=== PATIENT | male | born 1970 | race Hispanic/Latino ===

== ENCOUNTER → 2023-11-26 | Day surgery (SDC) | payer BC ==
[~2023-11-26] MED LIST: CENTRUM ADULTS1 EACH PO; FENTANYL CITRATE/PF 100MCG/2 ML INJ ONE; FOLTX TABLET1 EAC1 PO; HYOSCYAMINE SULFATE 0.5 MG/ML INJ ONE; LACTATED RINGER'S 1,000 ML ONE; LIDOCAINE HCL 2% LOCAL INJ 5 ML SDV VIAL INJ ONE; METOCLOPRAMIDE HCL 10 MG/2ML VIAL ONE; MIDAZOLAM HCL 2 MG/2 ML VIAL ONE; OMEPRAZOLE40 MG PO; ONDANSETRON HCL INJ 2MG/ML 2ML 2 MG/ML VIAL ONE; PHENYLEPHRINE HCL 1% 10 MG/ML VIAL ONE; PROVENTIL HFA6.7 GM INH
[2023-11-26 08:27] VITALS: TEMP 97.6
[2023-11-26 08:55] VITALS: BP 103/80; PULSE 75; RESP 15; O2SAT 99
== END | disposition home or self-care (01) ==
LOC: OR 06:12
PROVIDERS: ATTEND Internal Medicine Gastroenterology
DX: K29.60 Other gastritis without bleeding (principal); K63.5 Polyp of colon; B96.81 Helicobacter pylori [H. pylori] as the cause of diseases classified elsewhere; K29.80 Duodenitis without bleeding; K20.90 Esophagitis, unspecified without bleeding; K21.9 Gastro-esophageal reflux disease without esophagitis; K59.09 Other constipation; K64.8 Other hemorrhoids; Z71.3 Dietary counseling and surveillance; J45.909 Unspecified asthma, uncomplicated; Z79.899 Other long term (current) drug therapy; Z68.34 Body mass index [BMI] 34.0-34.9, adult
CPT/HCPCS: 43239; 45385; 93005; C9113; J1980; J2001; J2250; J2371; J2405; J2765; J3010; J7121; 45378

== ENCOUNTER 2025-04-08 21:10 | Inpatient (IN) | payer BC ==
[~2025-04-08] VITALS: Ht 162.6 cm; Wt 90.7 kg
[~2025-04-08 21:10] MED LIST changes: -FENTANYL CITRATE/PF 100MCG/2 ML INJ ONE; -HYOSCYAMINE SULFATE 0.5 MG/ML INJ ONE; -LACTATED RINGER'S 1,000 ML ONE; -LIDOCAINE HCL 2% LOCAL INJ 5 ML SDV VIAL INJ ONE; -METOCLOPRAMIDE HCL 10 MG/2ML VIAL ONE; -MIDAZOLAM HCL 2 MG/2 ML VIAL ONE; -ONDANSETRON HCL INJ 2MG/ML 2ML 2 MG/ML VIAL ONE; -PHENYLEPHRINE HCL 1% 10 MG/ML VIAL ONE
[2025-04-08 21:20] VITALS: RESP 16; TEMP 98.3
[2025-04-08 22:07] LABS: BASOPHILS # (AUTO) 0.1 (0.0-0.1); BASOPHILS % 0.8 % (0.0-1.0); EOSINOPHILS # (AUTO) 0.3 (0.0-0.4); EOSINOPHILS % 2.9 % (0.0-6.0); HEMATOCRIT 34.7 % (38.2-49.6); HEMOGLOBIN 11.6 g/dL (14.0-18.0); LYMPHOCYTES # (AUTO) 2.4 (1.0-3.2); LYMPHOCYTES % 20.7 % (18.0-39.1); MEAN CORPUSCULAR HGB CONC 33.4 g/dL (31-35); MEAN CORPUSCULAR VOLUME 89.7 fL (81-99); MONOCYTES # (AUTO) 1.2 (0.2-0.8); NEUTROPHILS # (AUTO) 7.5 (2.1-6.9); NEUTROPHILS % 65.3 % (38.7-80.0); PLATELET COUNT 305 x10e3/uL (140-360); RED BLOOD COUNT 3.87 x10e6/uL (4.3-5.7); RED CELL DISTRIBUTION WIDTH 12.8 % (11.7-14.4); WHITE BLOOD COUNT 11.45 x10e3/uL (4.8-10.8)
[2025-04-08 22:32] LABS: ALBUMIN 3.1 g/dL (3.5-5.0); ALBUMIN/GLOBULIN RATIO 1.3 (0.8-2.0); ANION GAP 12.4 mmol/L (8-16); BILIRUBIN,TOTAL 0.2 mg/dL (0.2-1.2); CALCIUM 8.4 mg/dL (8.4-10.2); CREATININE, SERUM 1.24 mg/dL (0.72-1.25); TOTAL PROTEIN 5.5 g/dL (6.5-8.1)
[2025-04-08 22:33] LABS: POTASSIUM 3.4 mmol/L (3.5-5.1)
[2025-04-08] MEDS ORDERED: IOPAMIDOL 370 MG/ML 100 ML INFUS..BTL INJ ONE (22:51)
[2025-04-09] VITALS (9 sets, daily range): BP systolic 113–174; BP diastolic 62–89; PULSE 71–90; RESP 17–20; TEMP 98.1–98.3; O2SAT 93–100
[2025-04-09 01:16] LABS: TROPONIN I < 0.001 ng/mL (0-0.300)
[2025-04-09 01:20] LABS: CREATINE KINASE 135 IU/L (30-200)
[2025-04-09] MEDS ORDERED: ONDANSETRON HCL INJ 2MG/ML 2ML 2 MG/ML VIAL IV PRN (02:15)
[2025-04-09] MEDS: Morphine 4mg INJECTION 4 MG/ML INJ IV STA (02:56)
[2025-04-09] MEDS: ONDANSETRON HCL INJ 2MG/ML 2ML 2 MG/ML VIAL IV STA (02:56)
[2025-04-09] MEDS ORDERED: HYDRALAZINE HCL 20 MG/ML VIAL IV PRN (03:00)
[2025-04-09] MEDS ORDERED: POLYETHYLENE GLYCOL 3350 17 GM PACK PO PRN (03:00)
[2025-04-09] MEDS: SODIUM CHLORIDE 0.9% 1000ML 1,000 ML IV SCH (03:11)
[2025-04-09] MEDS: Morphine 4mg INJECTION 4 MG/ML INJ IV PRN (04:55)
[2025-04-09] MEDS: MULTIVITAMINS/MINERALS TAB PO SCH (09:23)
[2025-04-09] MEDS: DOCUSATE SODIUM 100 MG CAP PO SCH (09:24)
[2025-04-09] MEDS: POTASSIUM CHLORIDE 10MEQ EA PO ONE (14:38)
[2025-04-09 15:14] LABS: TROPONIN I 0.006 ng/mL (0-0.300)
[2025-04-09 15:30] LABS: FREE T4 (FREE THYROXINE) 0.84 ng/dL (0.8-1.8); THYROID STIMULATING HORMONE 0.112 uIU/mL (0.350-4.940)
[2025-04-09 15:39] LABS: CHOL/HDL RATIO 2.6 (3.9-4.7); MAGNESIUM 1.9 MG/DL (1.3-2.1); PHOSPHORUS 2.4 MG/DL (2.3-4.7)
[2025-04-09] MEDS: ACETAMINOPHEN 325 MG TAB PO PRN (20:37)
[2025-04-10] VITALS (8 sets, daily range): BP systolic 118–128; BP diastolic 55–85; PULSE 16–92; RESP 16–20; TEMP 97.8–98.2; O2SAT 95–100
[2025-04-10 04:50] LABS: BASOPHILS # (AUTO) 0.1 (0.0-0.1); BASOPHILS % 0.9 % (0.0-1.0); EOSINOPHILS # (AUTO) 0.2 (0.0-0.4); EOSINOPHILS % 3.4 % (0.0-6.0); HEMATOCRIT 32.1 % (38.2-49.6); HEMOGLOBIN 10.1 g/dL (14.0-18.0); LYMPHOCYTES # (AUTO) 2.4 (1.0-3.2); LYMPHOCYTES % 34.5 % (18.0-39.1); MEAN CORPUSCULAR HEMOGLOBIN 29.4 pg (28-32); MEAN CORPUSCULAR HGB CONC 31.5 g/dL (31-35); MEAN CORPUSCULAR VOLUME 93.3 fL (81-99); MONOCYTES # (AUTO) 0.9 (0.2-0.8); NEUTROPHILS # (AUTO) 3.3 (2.1-6.9); NEUTROPHILS % 47.9 % (38.7-80.0); PLATELET COUNT 246 x10e3/uL (140-360); RED BLOOD COUNT 3.44 x10e6/uL (4.3-5.7); WHITE BLOOD COUNT 6.98 x10e3/uL (4.8-10.8)
[2025-04-10 05:09] LABS: INR 0.86; PROTHROMBIN TIME 12.5 seconds (11.9-14.5)
[2025-04-10 05:10] LABS: PARTIAL THROMBOPLASTIN TIME 28.6 seconds (23.8-35.5)
[2025-04-10 05:20] LABS: ALBUMIN 2.6 g/dL (3.5-5.0); ALBUMIN/GLOBULIN RATIO 1.2 (0.8-2.0); ANION GAP 9.7 mmol/L (8-16); BILIRUBIN,TOTAL 0.2 mg/dL (0.2-1.2); CALCIUM 8.3 mg/dL (8.4-10.2); CREATININE, SERUM 0.85 mg/dL (0.72-1.25); POTASSIUM 3.7 mmol/L (3.5-5.1); TOTAL PROTEIN 4.8 g/dL (6.5-8.1)
[2025-04-10 06:06] LABS: TROPONIN I 0.012 ng/mL (0-0.300)
[2025-04-10] MEDS ORDERED: DOCUSATE SODIUM 100 MG CAP PO PRN (17:15)
[2025-04-10] MEDS: HYDROCODONE/APAP 5MG-325MG TAB PO PRN (21:10)
[2025-04-11 00:22] VITALS: BP 97/62; PULSE 72; RESP 16; TEMP 98; O2SAT 95
[2025-04-11 03:15] VITALS: BP 112/53; PULSE 73; RESP 16; TEMP 97.6; O2SAT 95
[2025-04-11 07:47] VITALS: BP 141/87; PULSE 83; RESP 19; TEMP 97.7; O2SAT 100
[2025-04-11 07:54] VITALS: PULSE 88; RESP 18; O2SAT 97
[2025-04-11] MEDS ORDERED: ACETAMINOPHEN-1 EAC4 PO (09:18)
[2025-04-11] MEDS ORDERED: CEPHALEXIN250 M1 PO (09:18)
[2025-04-11] MEDS ORDERED: ONDANSETRON ODT4 MG PO (09:18)
[2025-04-11] MEDS ORDERED: ACETAMINOPHEN325 M1 PO (09:18)
[2025-04-11 11:15] VITALS: BP 119/78; PULSE 83; RESP 20; TEMP 97.6; O2SAT 100
== END 2025-04-11 11:33 | disposition home or self-care (01) | DRG 605 ==
LOC: ER 21:14 → ERHOLD 04-09 02:14 → MED/SURG 04-09 04:22
PROVIDERS: ADMIT Internal Medicine; ATTEND Internal Medicine
DX: S20.213A Contusion of bilateral front wall of thorax, initial encounter (principal); S29.011A Strain of muscle and tendon of front wall of thorax, initial encounter; S40.022A Contusion of left upper arm, initial encounter; M62.48 Contracture of muscle, other site; E87.6 Hypokalemia; E86.0 Dehydration; Y04.0XXA Assault by unarmed brawl or fight, initial encounter; R03.0 Elevated blood-pressure reading, without diagnosis of hypertension; J32.0 Chronic maxillary sinusitis; D72.829 Elevated white blood cell count, unspecified; F41.8 Other specified anxiety disorders
CPT/HCPCS: 36415; 71260; 80053; 80061; 80320; 82550; 83036; 83735; 84100; 84439; 84443; 84484; 85025; 85610; 85730; 94799; 99284; J2270; J2543; J7030; Q9967